=== PATIENT | female | born 1985 | race American Indian/Alaskan Native ===

== ENCOUNTER 2017-09-05 23:56 | Emergency (ER) | payer MEDICAID, OTHER ==
[2017-09-06 00:03] VITALS: BP 105/61
--- NOTE | 2017-09-06 00:10 | EDM.PDOC ---
ED HPI GENERAL MEDICAL PROBLEM - General Chief Complaint: Chest Pain Stated Complaint: INJURED RIBS [id number] Time Seen by Provider: 09/06/17 00:08 Source of Information: Reports: Patient History Limitations: Reports: No Limitations - History of Present Illness INITIAL COMMENTS - FREE TEXT/NARRATIVE: fell injuring right ribs yesterday, still hurts tonight. Right Thoracic Pain Score (Numeric/FACES): 8 - Related Data Allergies Allergy/AdvReac Type Severity Reaction Status Date / Time aspirin AdvReac Mild Stomach Verified 09/06/17 00:02 Ache Home Meds: Home Meds . [No Known Home Meds] 09/06/17 [History] Past Medical History - Past Health History Medical/Surgical History: Denies Medical/Surgical History Social & Family History - Family History Family Medical History: Noncontributory - Tobacco Use Smoking Status *Q: Current Every Day Smoker Years of Tobacco use: 2 Packs/Tins Daily: 0.2 Used Tobacco, but Quit: No Second Hand Smoke Exposure: No - Alcohol Use Days Per Week of Alcohol Use: 0 - Recreational Drug Use Recreational Drug Use: No ED ROS GENERAL - Review of Systems Review Of Systems: ROS reveals no pertinent complaints other than HPI. ED EXAM, GENERAL - Physical Exam Exam: See Below Exam Limited By: No Limitations General Appearance: Alert, WD/WN, Mild Distress, Other (pain) Ears: Hearing Grossly Normal Throat/Mouth: Normal Voice, No Airway Compromise Head: Atraumatic Neck: Non-Tender, Full Range of Motion Respiratory/Chest: No Respiratory Distress, Other (right lateral subcostal tender, no E/C). No: No Accessory Muscle Use, Decreased Breath Sounds Cardiovascular: Regular Rate, Rhythm GI/Abdominal: Soft, Non-Tender Neurological: Alert, Oriented, Normal Cognition, Normal Gait, No Motor/Sensory Deficits Psychiatric: Flat Affect Skin Exam: Warm, Dry, Normal Color Lymphatic: No Adenopathy Course - Vital Signs Last Recorded V/S: Last Vital Signs Temp 36.3 C 09/05/17 23:58 Pulse 79 09/05/17 23:58 Resp 18 09/05/17 23:58 BP 105/61 09/05/17 23:58 Pulse Ox 100 09/05/17 23:58 - Orders/Labs/Meds Orders: Active Orders 24 hr Category Date Time Status Ribs 2V w Chest Rt [CR] Urgent Exams 09/06/17 00:25 Taken Labs: Laboratory Tests 09/06/17 09/06/17 Range/Units 00:08 00:08 Urine HCG, Qual Negative Urine Opiates Screen Negative (NEGATIVE) Ur Oxycodone Screen Negative (NEGATIVE) Urine Methadone Screen Negative (NEGATIVE) Ur Barbiturates Screen Negative (NEGATIVE) U Tricyclic Antidepress Negative (NEGATIVE) Ur Phencyclidine Scrn Negative (NEGATIVE) Ur Amphetamine Screen Positive H (NEGATIVE) U Methamphetamines Scrn Positive H (NEGATIVE) Urine MDMA Screen Positive H (NEGATIVE) U Benzodiazepines Scrn Negative (NEGATIVE) Urine Cocaine Screen Negative (NEGATIVE) U Marijuana (THC) Screen Positive H (NEGATIVE) - Re-Assessments/Exams Free Text/Narrative Re-Assessment/Exam: 09/06/17 00:51 results discussed with pt & spouse. pt sleeping arousable. Departure - Departure Time of Disposition: 00:51 Disposition: Home, Self-Care 01 Condition: Good Clinical Impression: Contusion of rib on right side Qualifiers: Encounter type: initial encounter Qualified Code(s): S20.211A - Contusion of right front wall of thorax, initial encounter - Discharge Information Instructions: Rib Contusion Forms: ED Department Discharge Additional Instructions: 1) avoid further injuries 2) avoid bending lifting straining 3) recheck as needed rx given; flexeril 10mg bid prn x 12 - My Orders Last 24 Hours: My Active Orders 09/06/17 00:25 Ribs 2V w Chest Rt [CR] Urgent - Assessment/Plan Last 24 Hours: My Active Orders 09/06/17 00:25 Ribs 2V w Chest Rt [CR] Urgent
== END 2017-09-06 00:57 | disposition home or self-care (01) ==
LOC: DL.ED 23:56
DX: S20.211A Contusion of right front wall of thorax, initial encounter (principal); F17.210 Nicotine dependence, cigarettes, uncomplicated; W19.XXXA Unspecified fall, initial encounter; Z88.8 Allergy status to other drugs, medicaments and biological substances
CPT/HCPCS: 71101-RT; 80305; 81025; 99285

== ENCOUNTER 2020-12-28 03:52 | Inpatient (IN) | payer MEDICAID ==
[2020-12-28] MEDS: Lactated Ringers 1,000 ML IV SCH ×2 (04:30→07:40)
[2020-12-28] MEDS ORDERED: Citric Acid/Sodium Citrate Solution 30 ML Cup PO ONE (04:36)
[2020-12-28] MEDS ORDERED: Tranexamic Acid 1,000 MG in Sodium Chloride 0.9% 100 ML IV PRN ×2 (04:36→11:05)
[2020-12-28] MEDS ORDERED: Sodium Chloride 0.9% 10 ML Syringe FLUSH PRN (04:36)
[2020-12-28] MEDS ORDERED: ceFAZolin 2 GM in Premix Bag 1 BAG IV ONE (04:36)
[2020-12-28] MEDS ORDERED: Oxytocin/Normal Saline 30 UNIT/500 ML BAG IV SCH (04:45)
[2020-12-28] MEDS ORDERED: Citric Acid/Sodium Citrate Solution 30 ML Cup ONE (04:45)
[2020-12-28] MEDS ORDERED: Lactated Ringers 1,000 ML IV SCH ×2 (04:45→11:15)
[2020-12-28] MEDS ORDERED: Oxytocin/Normal Saline 60 UNIT/1,000 ML BAG ONE (04:57)
[2020-12-28] MEDS ORDERED: ePHEDrine 50 MG/ML SDV IV ONE (05:00)
[2020-12-28] MEDS ORDERED: Ondansetron 4 MG/2 ML SDV IV ONE (05:00)
[2020-12-28] MEDS ORDERED: Propofol 200 MG/20 ML SDV IV ONE (05:00)
[2020-12-28] MEDS ORDERED: Ketorolac 30 MG/ML SDV IVPUSH ONE (05:00)
[2020-12-28] MEDS ORDERED: Phenylephrine 1% 10 MG/ML SDV IV ONE (05:00)
--- NOTE | 2020-12-28 05:27 | US ---
PROCEDURE INFORMATION: Exam: US , Limited Exam date and time: 12/28/2020 4:42 AM Age: 35 years old Clinical indication: Lmp or gestational age (in weeks): Unknown; Antepartum complications; Patient HX: Dates and placenta location, bleeding, no care; Additional info: No pnc TECHNIQUE: Imaging protocol: Real-time ultrasound of the maternal uterus with image documentation. Exam focused on the clinical indication. COMPARISON: No relevant prior studies available. FINDINGS: Gestation: Intrauterine gestation. presentation: There is a gravid uterus containing a single live intrauterine currently in the cephalic presentation. heart rate: The cardiac rate was regular at 112 bpm. Placenta: The placenta is fundal. There is no previa. The placenta is a grade 2 Amniotic fluid: Amniotic fluid volume appears normal BIOMETRY: Gestational age (AUA): The sonographic gestational age is approximately 36 weeks 3 days. IMPRESSION: 1. Single live intrauterine with a sonographic gestational age of approximately 36 weeks 3 days. 2. The current estimated weight is 2715 g (6 lb 0 oz) 30%
[2020-12-28] MEDS ORDERED: Norepinephrine 4 MG/4 ML SDV ONE (06:10)
--- NOTE | 2020-12-28 07:08 | PCM.CONSN ---
- General Info Date of Service: 12/28/20 Admission Dx/Problem (Free Text): 35F w/ pmh Hep C, polysubstance abuse, a/w suspected abruptio placenta in setting of her 11th now s/p emergent hospitalist consulted for hypotension and bradycardia. The EBL pre-op was 500-1000cc. Intra-op EBL was another ~600cc. Her initial Hb was 10.0 and she appeared dry per OB provider. She admitted to meth use appx 2 days ago. After spinal anesthesia was administered the pt became extremely agitated requiring IVP propofol. Subsequently she developed hypotension down to 69/29. Pt then received ephedrine and phenylephrine w/ improvement in SBP to 80-90s. Pt was never intubated but was bagged briefly. In the PACU the pt once again became extremely agitated and briefly hypotensive and bradycardic to 40s. No EKG was done but per anesthesia it appeared sinus. This too resolved w/in 5 min. Pt received ~1900 intra-op fluids. Pt was seen in the PACU. For past 30 min her SBPs have been 100-110s. HR 50- 60s. She is sedated and does not respond to questions but is moving around in the bed. Extremities are well perfused w/ good cap refill. Abdomen appears benign. UOP has been essentially 0 since cath was placed. - Review of Systems General: Reports: Other (unable to obtain ROS due to mental status) - Patient Data Vitals - Most Recent: Last Vital Signs Temp Pulse Resp BP Pulse Ox 100 12/28/20 05:51 Weight - Most Recent: 175 lb I&O - Last 24 Hours: Intake & Output 12/27/20 12/27/20 12/28/20 14:59 22:59 06:59 Intake Total 50 Balance 50 Lab Results Last 24 Hours: Laboratory Results - last 24 hr 12/28/20 12/28/20 12/28/20 Range/Units 04:05 04:05 04:06 WBC 7.4 (5.0-10.0) 10^3/uL RBC 3.97 L (4.2-5.4) 10^6/uL Hgb 10.0 L (12.0-16.0) g/dL Hct 31.2 L (37.0-47.0) % MCV 78.6 L (80-100) fL MCH 25.2 L (27.0-34.0) pg MCHC 32.1 L (33.0-35.0) g/dL Plt Count 335 (150-450) 10^3/uL Urine Opiates Screen (NEGATIVE) Ur Oxycodone Screen (NEGATIVE) Urine Methadone Screen (NEGATIVE) Ur Barbiturates Screen (NEGATIVE) U Tricyclic Antidepress (NEGATIVE) Ur Phencyclidine Scrn (NEGATIVE) Ur Amphetamine Screen (NEGATIVE) U Methamphetamines Scrn (NEGATIVE) Urine MDMA Screen (NEGATIVE) U Benzodiazepines Scrn (NEGATIVE) Urine Cocaine Screen (NEGATIVE) U Marijuana (THC) Screen (NEGATIVE) SARS-CoV-2 RNA (ATUL) Negative (NEGATIVE) Blood Type A POSITIVE Gel Antibody Screen Negative 12/28/20 Range/Units 04:55 WBC (5.0-10.0) 10^3/uL RBC (4.2-5.4) 10^6/uL Hgb (12.0-16.0) g/dL Hct (37.0-47.0) % MCV (80-100) fL MCH (27.0-34.0) pg MCHC (33.0-35.0) g/dL Plt Count (150-450) 10^3/uL Urine Opiates Screen Negative (NEGATIVE) Ur Oxycodone Screen Negative (NEGATIVE) Urine Methadone Screen Negative (NEGATIVE) Ur Barbiturates Screen Negative (NEGATIVE) U Tricyclic Antidepress Negative (NEGATIVE) Ur Phencyclidine Scrn Negative (NEGATIVE) Ur Amphetamine Screen Positive H (NEGATIVE) U Methamphetamines Scrn Positive H (NEGATIVE) Urine MDMA Screen Negative (NEGATIVE) U Benzodiazepines Scrn Negative (NEGATIVE) Urine Cocaine Screen Negative (NEGATIVE) U Marijuana (THC) Screen Negative (NEGATIVE) SARS-CoV-2 RNA (ATUL) (NEGATIVE) Blood Type Gel Antibody Screen - Exam Quality Assessment: Supplemental Oxygen General: Lethargic HEENT: Pupils Reactive, Mucous Membr. Moist/Whiteside Lungs: Clear to Auscultation (anteriorly), Normal Respiratory Effort Cardiovascular: Regular Rate, Regular Rhythm, No Murmurs GI/Abdominal Exam: Normal Bowel Sounds, Soft, Non-Tender, No Distention (Female) Exam: Other (rendon in place) Extremities: Other (SCDs on, all ext warm and well perfused, good cap refill) Skin: Warm, Dry Psy/Mental Status: Other (sedated) Sepsis Event Note - Focused Exam Vital Signs: Vital Signs Pulse Ox 12/28/20 05:51 100 Consult PN Assessment/Plan Procedures: Procedures AIRWAY INHALATION TREATMENT (04/30/19) ASSAY OF MAGNESIUM (12/08/13) CHORIONIC GONADOTROPIN TEST (12/08/13) CHYLMD TRACH DNA AMP PROBE (01/24/16) COMPLETE CBC W/AUTO DIFF WBC (12/08/13) CULTURE AEROBIC IDENTIFY (12/08/13) DRUG TEST PRSMV DIR OPT OBS (04/06/18) EMERGENCY DEPT VISIT (04/30/19) EMERGENCY DEPT VISIT (04/30/19) EMERGENCY DEPT VISIT (04/06/18) EMERGENCY DEPT VISIT (04/06/18) EMERGENCY DEPT VISIT (09/05/17) EMERGENCY DEPT VISIT (01/24/16) EMERGENCY DEPT VISIT (12/08/13) HEMATOCRIT (04/06/18) HEMOGLOBIN (04/06/18) HEPATITIS C AB TEST (12/16/18) HIV-1 AG W/HIV-1 & -2 AB AG IA (12/16/18) METABOLIC PANEL TOTAL CA (12/08/13) MICROBE SUSCEPTIBLE XANDER (12/08/13) N.GONORRHOEAE DNA AMP PROB (01/24/16) OB US LIMITED FETUS(S) (12/08/13) ROUTINE VENIPUNCTURE (04/06/18) THER/PROPH/DIAG INJ SC/IM (01/24/16) URINALYSIS AUTO W/SCOPE (04/06/18) URINE BACTERIA CULTURE (12/08/13) URINE TEST (04/30/19) X-RAY EXAM CHEST 2 VIEWS (04/30/19) X-RAY EXAM UNILAT RIBS/CHEST (09/05/17) Problem List Initiated/Reviewed/Updated: No My Orders Last 24 Hours: #hypotension / bradycardia - likely in setting of spinal anesthesia - her trajectory is improving and currently hemodynamically stable - she is also currently fairly sedated - would obtain a 12 lead EKG at some point when feasible - c/w IVF infusions - repeat CBC and transfuse if needed - keep T/S on file - would expect hemodynamics to improve further w/in 2-6h as spinal wears off - I recommend against intubation at this moment as risks outweigh the benefits #oliguria - in setting of above - likely appropriate physiologic response to hypotension - keep rendon to monitor UOP - c/w IVF resuscitation - send chemistry w/ next draw - MUST AVOID any contrast administration in this setting and weigh risks of potentially nephrotoxic agents #agitation - would use intermediate acting benzos like ativan prn - BP should not go down significantly #POD0 s/p labor and delivery in setting of abruptio placenta - defer to OB #acute blood loss anemia - f/up CBC - transfuse as needed #polysubstance abuse - watch for w/drawal - CM/SW eval PPX - per OB Full code
[2020-12-28 09:40] LABS: ANION GAP 14.7 mEq/L (7-13); CHLORIDE,CL 103 mmol/L (98-107); SODIUM,NA 138 mmol/L (136-145)
--- NOTE | 2020-12-28 10:47 | OR ---
DATE: 12/28/2020 PREOPERATIVE DIAGNOSES: 1. Vaginal bleeding with labor. 2. Estimated gestational age 37 weeks 6 days by last menstrual period, 36 weeks 3 days by ultrasound performed tonight. 3. 11, para 8-1-1-10. 4. History of vaginal delivery of twins. 5. Methamphetamine abuse with last use 2 days ago. 6. Hepatitis C virus carrier. 7. Smoker. 8. No care. 9. Clinical dehydration. POSTOPERATIVE DIAGNOSES: 1. Vaginal bleeding with labor. 2. Estimated gestational age 37 weeks 6 days by last menstrual period, 36 weeks 3 days by ultrasound performed tonight. 3. 11, now para 8-2-1-11. 4. History of vaginal delivery of twins. 5. Methamphetamine abuse with last use 2 days ago. 6. Hepatitis C virus carrier. 7. Smoker. 8. No care. 9. Placental abruption confirmed. 10.Anemia of . 11.Clinical dehydration. BRIEF HISTORY: A 35-year-old female with the above-listed diagnoses, brought in by [facility] ambulance after experiencing onset of contractions early this morning accompanied by significant vaginal bleeding. Ambulance service reports that there was a lot of blood present in the toilet and in the patient's bathroom and bedroom and quite a bit on their ambulance cart. Estimated blood loss quantity was not actually provided. The patient says she has had all prior vaginal deliveries and that her labors are usually quite fast. She denies any bleeding previous to this morning. Last use of methamphetamine was approximately 2 days ago. Denies any specific abdominal pain. She has had no preeclampsia symptoms. No chest pain or shortness of breath. No care. Denies other acute concerns pertinent to today's visit. Upon arrival at Labor and Delivery, baby's heart tones were in the 80s and 90s with good variability. Bleeding was moderate and nurses were getting her assessed quickly. We were able to get a rapid bedside ultrasound showing the baby to be 36 weeks 3 days gestation based on measurements and the placenta to be anterior and high away from the uterine incision location. No anatomy or additional screening was performed due to time constraints. Myers catheter was placed in the delivery room and only 50 mL of concentrated urine resulted. PROCEDURE PERFORMED: Primary low transverse section without complications. RELAY ADJUSTER: Cris Reyes MD. FINDINGS: Normal maternal anatomy. Large placental abruption with a clot approximately 300 mL in size and viable male with scores of 5 and 7, weight 2500 g, 5 pounds 8 ounces. Initial exam consistent with a gestational age of 36 to 37 weeks. ANESTHESIA: Spinal. The patient was quite anxious about not feeling her legs and given a dose of propofol for additional sedation. CONSENT: Discussed with the patient. INDICATIONS: Risks, benefits, and alternatives to primary low transverse section including but not limited to, injury to large blood vessels, nerves, veins, internal organs, and adjacent structures to the uterus, fallopian tubes, ovaries, intestines, bladder, and any other potential adjacent structures, potential injury to the baby, potential for complications for mother and/or baby that would require transfer to a higher level of care for definitive management and remote risk of . Also discussed risk of bleeding to the point of requiring a blood transfusion and its inherent risks. Her questions were answered and appropriate consent forms were signed and can be found in the chart. DETAILS: The patient brought to the operating room and spinal anesthesia was obtained. The patient then laid in dorsal supine position with leftward tilt. Myers indwelling catheter had previously been placed before coming to the OR. Abdomen was cleaned with Betadine, and sterile drapes applied in usual fashion. A Pfannenstiel skin incision was made with scalpel and carried down to the underlying fascia with scalpel and finger dissection. At this time, Anesthesia had reported the patient was thrashing and quite agitated and felt that he would have to put her under general anesthesia to control that, so we were moving a little bit more quickly, even though he ultimately ended up only giving propofol. Fascia was incised in the midline with scalpel and the fascia cleared with retractor and finger dissection. Fascia opened with blunt traction and superior fascial edge was elevated and rectus muscles dissected off bluntly, inferior fascial edge, treated in a similar fashion. The peritoneal layer was opened with blunt finger dissection and hysterotomy site evaluated, was rather thin and bulging, but no obvious signs of bleeding were seen. Uterine incision was made with scalpel and immediately a dark red clot presented through the hysterotomy site. The opening was expanded bilaterally using Galeana method and amniotic fluid sac then seen and ruptured with Allis clamps and clear fluid returned. 's head was brought up to the hysterotomy site and delivered out with concomitant fundal pressure. Baby was delivered, noted to be floppy, and initially unresponsive. Baby was being dried, stimulated, and mouth and nose were being bulb suctioned. As soon as the 3-vessel umbilical cord was doubly clamped and cut, Dr. Reyes took the baby to the warmer for further evaluation and resuscitation. Cord blood sample was obtained and placenta delivered by simple cord traction and uterine massage quite easily. Very large dark blood clot noted, estimated to be at least 300 mL in size. Uterus was cleared of all clots and debris with dry lap sponge x2. Hysterotomy site closed with a running lock suture of 0 Vicryl in the usual fashion. Second imbricating layer was also performed and excellent hemostasis obtained. Uterus exteriorized and fallopian tubes and ovaries normal in appearance, as well as posterior aspect of the uterus. This was placed back in the abdominal cavity and Jordi retractor removed. Paracolic gutters were cleared of all clots and debris, and hemostasis of the hysterotomy site verified. Peritoneal layer was brought back together with a stitch of 0 Vicryl in a running fashion. Fascial layer was then irrigated, cleared of all clots and debris, and fascia closed with a running stitch of 0 looped PDS. Subcutaneous tissue was then irrigated and any bleeders controlled with cautery. Skin was then closed with gary. The patient tolerated the procedure well and will go to the PACU for recovery. FLUIDS: Crystalloids 1900 mL. ESTIMATED BLOOD LOSS: 300 mL at the surgical field, 300 mL in blood clot with the abruption, and anticipated 500 to 1000 mL preoperative report combined. SPECIMENS: Cord sample taken for urine drug evaluation. COMPLICATIONS: None. CONDITION: The patient is stable, hypotensive, and has received some ephedrine in the operating room, but stable. [facility] /[id number] DINO
[2020-12-28] MEDS ORDERED: Acetaminophen/oxyCODONE 325-5 MG Tab PO PRN (11:05)
[2020-12-28] MEDS ORDERED: diphenhydrAMINE 50 MG/ML SDV IVPUSH PRN (11:05)
[2020-12-28] MEDS ORDERED: ePHEDrine 50 MG/ML SDV IVPUSH PRN (11:05)
[2020-12-28] MEDS ORDERED: Naloxone 2 MG/2 ML Syringe IVPUSH PRN (11:05)
[2020-12-28] MEDS ORDERED: Acetaminophen 325 MG Tab PO PRN (11:05)
[2020-12-28] MEDS ORDERED: Carboprost Tromethamine 250 MCG/1 ML Amp IM PRN (11:05)
[2020-12-28] MEDS ORDERED: Ondansetron 4 MG/2 ML SDV IVPUSH PRN (11:05)
[2020-12-28] MEDS ORDERED: Misoprostol 400 MCG (4 X 100 MCG TAB) RECTAL PRN (11:05)
[2020-12-28] MEDS ORDERED: Methylergonovine 0.2 MG/1 ML Amp IM PRN (11:05)
--- NOTE | 2020-12-28 11:47 | HP ---
CHIEF COMPLAINT: Labor with bleeding. HISTORY OF PRESENT ILLNESS: A 35-year-old female, brought in by [facility] ambulance reporting onset of regular contractions, increasing in force and frequency, accompanied by heavy vaginal bleeding. Ambulance crew reported to the nurses that the toilet was filled with blood and there was a large amount of blood in the bathroom and on their ambulance cart, but no actual estimated blood loss value was given. The patient reports never experiencing bleeding like this with prior deliveries. Reports all deliveries have been vaginal. She has not had any care this . Admits to methamphetamine use 2 days prior to admission. Denies any symptoms of preeclampsia. Denies problems with prior deliveries even in the period. Reports last menstrual period as 04/08/2020; and her due date would be 01/12/2021, making her 37 and 6/7 weeks gestation at this time. She is a 11, para 8-1-1-10. FAMILY HISTORY: Reportedly negative. PAST MEDICAL HISTORY: Chickenpox as a child. History of intravenous drug use, currently using methamphetamine via smoking method. Smokes regular cigarettes, and has a history of chronic hepatitis C. PAST SURGICAL HISTORY: Cholecystectomy. ALLERGIES: Aspirin causes stomach pain. MEDICATIONS: vitamins 1 daily. SOCIAL HISTORY: The patient is single. Reports having custody of her younger children. Oldest child is 19. Light smoker. Other information can be obtained postoperatively as there is limited time for details. OBSTETRICAL HISTORY: 1. 11/07/2001, female infant, 7 pounds 9 ounces at term, 2-1/2 hours of labor. 2. 11/29/2002, female infant, 5 pounds 13 ounces, reportedly term, vaginal delivery. 3. 02/29/2004, female, 6 pounds 12 ounces, reportedly term, vaginal delivery. 4. 09/22/2007, male, 7 pounds 6 ounces, reportedly term, vaginal delivery. 5. 02/27/2008, spontaneous at 8 to 10 weeks gestation. 6. 01/05/2009, female , weight is 6 pounds 7 ounces. 7. 06/07/2013,, male 8 pounds 1 ounce, 40 weeks gestation, delivered vaginally by Dr. Lim. 8. 01/05/2014, 37 weeks 1 day gestation. Weight 3010 g, 6 pounds 10 ounces, score of 9 and 9. Vaginal delivery by Dr. Grey. 9. Twin gestation 30 to 34 weeks gestation, complicated by methamphetamine and MDMA use. Twin A, hawa breech, 975 g, score of 8 and 8, female. Twin B, double footling breech, male, 2010 g, score of 1, 4, and 7. REVIEW OF SYSTEMS: As per the history of present illness. No recent fever, chills, chest pain, shortness of breath. Denies any leakage of fluid. No vaginal bleeding previously in the . No care. Denies other use of drugs or alcohol other than that already listed. PHYSICAL EXAMINATION: Vital Signs: Temperature is 97.6, blood pressure 119/87 and 143/91, pulse of 78, O2 saturations 100% on room air. HEENT: Grossly unremarkable. The patient does have an oxygen mask on at this time and I did not remove that for a thorough oral exam. Neck: Supple without adenopathy. Heart: Regular without murmur. Lungs: Clear to auscultation bilaterally. Abdomen: Gravid, soft, firm with contractions. The baby palpates vertex. Genitourinary: Speculum exam, I am unable to see the cervical opening to assess for placenta previa. Gentle digital exam prior to ultrasound being on site reveals the external portion of the cervix to feel no more than potential 4 cm dilated. There is possible tissue present at the cervical os that could represent placenta or just normal cervical tissue. After ultrasound was performed and verified that she did not have a placenta previa, re-exam of the cervix was 50% effaced, 3.5 cm dilated, bulging bag of water intact with vertex palpated. Extremities: No edema, erythema, or tenderness. Skin: Warm, dry, appropriate for race. No open sores. Psychiatric: The patient is cooperative with answering questions as best she can between her painful contractions. No tics, tremors, or hallucinations at this time. The patient does not appear to be acutely intoxicated with drugs or alcohol. ASSESSMENT: 1. Estimated 36 weeks 3 days gestation based on ultrasound today, 37 weeks 6 days by last menstrual period. 2. Vaginal bleeding, suspect placental abruption because of her methamphetamine use. 3. Methamphetamine abuse. 4. 11, para 8-1-1-10. 5. Light smoker. 6. No care. 7. History of twins, undiagnosed prior . 8. Hepatitis C. 9. Anemia of . Admission hemoglobin of 10. PLAN: At this time, heart rate is in the 80s and 90s, however, showing good variability. She is remote from delivery and having significant vaginal bleeding. We will proceed with primary low transverse section. Operating room crew and respiratory therapist assistant have been called and should be arriving shortly so that we can proceed to the operating room. The patient was appropriately consented and those forms will be found in the chart. Details will be in the operative report. [facility] /[id number] DINO
[2020-12-28] MEDS: Ketorolac 30 MG/ML SDV IVPUSH SCH ×2 (12:59→18:05)
[2020-12-28] MEDS: Simethicone 80 MG Tab.Chew PO SCH ×3 (13:00→20:37)
[2020-12-28] MEDS: Docusate Sodium 100 MG Cap PO PRN (20:37)
[2020-12-28] MEDS: Ferrous Sulfate 325 MG Tab PO SCH (20:37)
[2020-12-28] MEDS: Calcium Carbonate/Vitamin D3 1250 MG-200 Unit Tab PO SCH (21:39)
[2020-12-28] MEDS: Acetaminophen/oxyCODONE 325-5 MG Tab PO PRN (21:40)
[2020-12-29] MEDS: Ketorolac 30 MG/ML SDV IVPUSH SCH (00:50)
[2020-12-29] MEDS: Acetaminophen/oxyCODONE 325-5 MG Tab PO PRN ×4 (05:48→21:17)
[2020-12-29] MEDS ORDERED: Measles, Mumps & Rubella Vaccine 0.5 ML SDV SUBCUT ONE (09:07)
[2020-12-29] MEDS: Ferrous Sulfate 325 MG Tab PO SCH ×2 (09:39→21:17)
[2020-12-29] MEDS: Docusate Sodium 100 MG Cap PO PRN ×2 (09:39→21:17)
[2020-12-29] MEDS: Simethicone 80 MG Tab.Chew PO SCH ×4 (09:39→21:17)
[2020-12-29] MEDS: Calcium Carbonate/Vitamin D3 1250 MG-200 Unit Tab PO SCH ×2 (09:40→21:17)
[2020-12-29] MEDS: Ibuprofen 800 MG Tab PO PRN ×2 (09:40→19:41)
[2020-12-29] MEDS: Prenatal Multivitamin with Calcium/Folic Acid/Iron Tab PO SCH (09:40)
--- NOTE | 2020-12-29 09:55 | PCM.CONSN ---
- General Info Date of Service: 12/29/20 Admission Dx/Problem (Free Text): Feels 'better'. No agitation. No pain. Stable BP and UOP. - Patient Data Vitals - Most Recent: Last Vital Signs Temp 98.2 F 12/29/20 08:00 Pulse 83 12/29/20 08:00 Resp 16 12/29/20 08:00 BP 134/86 12/29/20 08:00 Pulse Ox 98 12/29/20 08:00 Weight - Most Recent: 175 lb I&O - Last 24 Hours: Intake & Output 12/28/20 12/29/20 12/29/20 22:59 06:59 14:59 Intake Total 350 Output Total 1550 900 Balance -1200 -900 Lab Results Last 24 Hours: Laboratory Results - last 24 hr 12/28/20 12/28/20 12/28/20 Range/Units 04:05 09:05 09:05 WBC (5.0-10.0) 10^3/uL RBC (4.2-5.4) 10^6/uL Hgb (12.0-16.0) g/dL Hct (37.0-47.0) % MCV (80-100) fL MCH (27.0-34.0) pg MCHC (33.0-35.0) g/dL Plt Count (150-450) 10^3/uL HIV-1 Antibody Non-reactive (NONREACTIVE) HIV-2 Antibody Non-reactive (NONREACTIVE) HIV P24 Antigen Non-reactive (NONREACTIVE) Rubella Immune Status Immune Rubella IgG Antibody Positive IU/mL Blood Type A POSITIVE Gel Antibody Screen Negative Crossmatch See Detail 12/28/20 12/29/20 Range/Units 16:30 05:45 WBC 6.6 (5.0-10.0) 10^3/uL RBC 3.13 L (4.2-5.4) 10^6/uL Hgb 6.5 L* 8.0 L D (12.0-16.0) g/dL Hct 25.1 L (37.0-47.0) % MCV 80.2 (80-100) fL MCH 25.6 L (27.0-34.0) pg MCHC 31.9 L (33.0-35.0) g/dL Plt Count 241 (150-450) 10^3/uL HIV-1 Antibody (NONREACTIVE) HIV-2 Antibody (NONREACTIVE) HIV P24 Antigen (NONREACTIVE) Rubella Immune Status Rubella IgG Antibody IU/mL Blood Type Gel Antibody Screen Crossmatch Zoran Results Last 24 Hours: Microbiology 12/28/20 08:25 Urine Culture - Preliminary Urine, Catheterized NO GROWTH AFTER 1 DAY - Exam Quality Assessment: No: Supplemental Oxygen General: Alert, Oriented, Cooperative Lungs: Clear to Auscultation, Normal Respiratory Effort Cardiovascular: Regular Rate, Regular Rhythm, No Murmurs GI/Abdominal Exam: Normal Bowel Sounds, Soft, Non-Tender, No Distention (Female) Exam: Other (rendon in place) Extremities: No Pedal Edema Skin: Warm, Dry Neurological: No New Focal Deficit Psy/Mental Status: Alert, Normal Affect, Normal Mood Sepsis Event Note - Evaluation Sepsis Screening Result: No Definite Risk - Focused Exam Vital Signs: Vital Signs Temp Pulse Resp BP Pulse Ox 12/29/20 08:00 98.2 F 83 16 134/86 98 12/29/20 04:00 98.5 F 54 L 16 126/81 12/29/20 00:00 97.5 F 72 16 132/77 Consult PN Assessment/Plan POD#: 1 Procedures: Procedures AIRWAY INHALATION TREATMENT (04/30/19) ASSAY OF MAGNESIUM (12/08/13) CHORIONIC GONADOTROPIN TEST (12/08/13) CHYLMD TRACH DNA AMP PROBE (01/24/16) COMPLETE CBC W/AUTO DIFF WBC (12/08/13) CULTURE AEROBIC IDENTIFY (12/08/13) DRUG TEST PRSMV DIR OPT OBS (04/06/18) EMERGENCY DEPT VISIT (04/30/19) EMERGENCY DEPT VISIT (04/30/19) EMERGENCY DEPT VISIT (04/06/18) EMERGENCY DEPT VISIT (04/06/18) EMERGENCY DEPT VISIT (09/05/17) EMERGENCY DEPT VISIT (01/24/16) EMERGENCY DEPT VISIT (12/08/13) HEMATOCRIT (04/06/18) HEMOGLOBIN (04/06/18) HEPATITIS C AB TEST (12/16/18) HIV-1 AG W/HIV-1 & -2 AB AG IA (12/16/18) METABOLIC PANEL TOTAL CA (12/08/13) MICROBE SUSCEPTIBLE ZORAN (02/19/14) N.GONORRHOEAE DNA AMP PROB (01/24/16) OB US LIMITED FETUS(S) (12/08/13) ROUTINE VENIPUNCTURE (04/06/18) THER/PROPH/DIAG INJ SC/IM (01/24/16) URINALYSIS AUTO W/SCOPE (04/06/18) URINE BACTERIA CULTURE (12/08/13) URINE TEST (04/30/19) X-RAY EXAM CHEST 2 VIEWS (04/30/19) X-RAY EXAM UNILAT RIBS/CHEST (09/05/17) Problem List Initiated/Reviewed/Updated: No Plan: #hypotension / bradycardia 2/2 spinal anesthesia and propofol use - resolved #oliguria - in setting of above - likely appropriate physiologic response to hypotension - now resolved - rec d/c rendon cath #agitation - would use intermediate acting benzos like ativan prn - BP should not go down significantly - resolved #POD1 s/p labor and delivery in setting of abruptio placenta - defer to OB #acute blood loss anemia - s/p 1U prbc - would not transfuse further as she is young and w/ lots of physiologic reserve - defer to OB #polysubstance abuse - watch for w/drawal - CM/SW eval PPX - per OB Full code Will sign off. Recall prn.
[2020-12-29 11:47] LABS: C.TRACHOMATIS BY TMA Positive (Negative); N.GONORRHOEAE BY TMA Positive (Negative)
[2020-12-29] MEDS ORDERED: cefTRIAXone 500 MG Vial IM ONE (12:23)
[2020-12-29] MEDS ORDERED: Azithromycin 250 MG Tab PO ONE (12:25)
--- NOTE | 2020-12-29 12:56 | PN ---
DATE: 12/29/2020 SUBJECTIVE: This patient is a 35-year-old 11, para 8-1-1-9 female, who reported to Labor and Delivery yesterday with bleeding and she had a primary section for abruptio placenta. She tolerated the procedure quite well. She has done well throughout the night. She has had good urinary output. She denies any nausea, vomiting, or diarrhea. No fever or chills. She has been up and about after her Myers catheter has been removed and has had good urinary output. Her lochia is minimal to moderate. Her incision is uncomfortable, but she is doing quite well with it. There is no drainage noted. No fever, chills. She did have a positive chlamydia and gonorrhea that came back today. She states that her partner was treated on Friday with a "shot and some pills." Her hemoglobin today was 8. She denies any lightheadedness or dizziness. OBJECTIVE: General: Well-developed, well-nourished female, in no acute distress. Vital Signs: Stable. Afebrile. HEENT: Unremarkable. NECK: Supple without adenopathy. No thyromegaly. Lungs: Clear to auscultation. No wheezing, rhonchi, or rales noted. Cardiovascular: Regular rate and rhythm without murmurs. Abdomen: Soft, slightly tender over the incision site. Bowel sounds good. No rigidity, rebound tenderness, peritoneal signs noted. Incision is doing well with gary noted. Extremities: No edema, erythema, or tenderness noted. ASSESSMENT: 1. Postop day #1 status post primary low transverse section of a viable male . 2. Positive chlamydia and gonorrhea. 3. Anemia secondary to blood loss. PLAN: 1. Azithromycin p.o. 1000 mg now. 2. Ceftriaxone 500 mg IM now. 3. The patient is taking Percocet and ibuprofen as needed for pain. 4. The patient is walking and ambulating. 5. Discharge planning for the next couple of days. 6. All questions answered. MOD /[id number]
[2020-12-30] MEDS: Ibuprofen 800 MG Tab PO PRN ×3 (04:17→22:27)
[2020-12-30] MEDS: Acetaminophen/oxyCODONE 325-5 MG Tab PO PRN ×4 (04:18→22:27)
--- NOTE | 2020-12-30 09:06 | PCM.PNPP ---
- General Info Date of Service: 12/30/20 (POD # 2 S/P Primary section) Functional Status: Reports: Pain Controlled, Tolerating Diet, Ambulating, Urinating - Review of Systems General: Reports: No Symptoms HEENT: Reports: No Symptoms Pulmonary: Reports: No Symptoms Cardiovascular: Reports: No Symptoms Gastrointestinal: Reports: No Symptoms Genitourinary: Reports: No Symptoms Musculoskeletal: Reports: No Symptoms Skin: Reports: No Symptoms Neurological: Reports: No Symptoms Psychiatric: Reports: No Symptoms - General Info Date of Service: 12/30/20 (POD # 2 S/P Primary section) - Patient Data Vital Signs - Most Recent: Last Vital Signs Temp 98.7 F 12/30/20 04:00 Pulse 60 12/30/20 04:00 Resp 18 12/30/20 04:00 BP 147/85 H 12/30/20 04:00 Pulse Ox 100 12/30/20 04:00 Weight - Most Recent: 175 lb Lab Results - Last 24 Hours: Laboratory Results - last 24 hr 12/28/20 12/28/20 Range/Units 08:25 09:05 RPR Non-reac (Non-Reac) Chlamydia/GC Source Urine C.trachomatis RNA (TMA) Positive H (Negative) N.gonorrhoeae RNA (TMA) Positive H (Negative) Micro Results - Last 24 Hours: Microbiology 12/28/20 08:25 Urine Culture - Preliminary Urine, Catheterized NO GROWTH AFTER 1 DAY Med Orders - Current: Current Medications Acetaminophen (Acetaminophen 325 Mg Tab) 650 mg PO Q6H PRN PRN Reason: Mild Pain (1-3) or Fever Calcium Carbonate (Calcium Carbonate/Vitamin D3 1250 Mg-200 Unit Tab) 2 tab PO BID [facility] Last Admin: 12/29/20 21:17 Dose: 2 tab Documented by: Carboprost Tromethamine (Carboprost Tromethamine 250 Mcg/1 Ml Amp) 250 mcg IM ONETIME PRN PRN Reason: Bleeding Diphenhydramine HCl (Diphenhydramine 50 Mg/Ml Sdv) 25 mg IVPUSH Q6H PRN PRN Reason: Itching or Nausea Docusate Sodium (Docusate Sodium 100 Mg Cap) 100 mg PO Q12H PRN PRN Reason: Constipation Last Admin: 12/29/20 21:17 Dose: 100 mg Documented by: Ephedrine Sulfate (Ephedrine 50 Mg/Ml Sdv) 5 mg IVPUSH SEECOMMENT PRN PRN Reason: Other Ferrous Sulfate (Ferrous Sulfate 325 Mg Tab) 325 mg PO BID [facility] Last Admin: 12/29/20 21:17 Dose: 325 mg Documented by: Tranexamic Acid 1,000 mg/ (Sodium Chloride) 110 mls @ 660 mls/hr IV ONETIME PRN PRN Reason: Bleeding Oxytocin/Sodium Chloride (Pitocin In Ns 30 Unit/500 Ml) 30 unit in 500 mls @ 2 mls/hr IV TITRATE [facility]; Protocol Last Titration: 12/28/20 09:55 Dose: 0 munits/min, 0 mls/hr Documented by: Lactated Ringer's (Ringers, Lactated) 1,000 mls @ 125 mls/hr IV ASDIRECTED [facility] Last Admin: 12/28/20 16:25 Dose: 125 mls/hr Documented by: Tranexamic Acid 1,000 mg/ (Sodium Chloride) 110 mls @ 660 mls/hr IV ONETIME PRN PRN Reason: Bleeding Ibuprofen (Ibuprofen 800 Mg Tab) 800 mg PO Q8H PRN PRN Reason: Cramping Last Admin: 12/30/20 04:17 Dose: 800 mg Documented by: Methylergonovine Maleate (Methylergonovine 0.2 Mg/1 Ml Amp) 0.2 mg IM ONETIME PRN PRN Reason: Excessive Vaginal Bleeding Misoprostol (Misoprostol 400 Mcg (4 X 100 Mcg Tab)) 800 mcg RECTAL ASDIRECTED PRN PRN Reason: Excessive bleeding Naloxone HCl (Naloxone 2 Mg/2 Ml Syringe) 0.1 mg IVPUSH SEECOMMENT PRN PRN Reason: Respiratory Depression Ondansetron HCl (Ondansetron 4 Mg/2 Ml Sdv) 4 mg IVPUSH Q4H PRN PRN Reason: Nausea/Vomiting Oxycodone/Acetaminophen (Acetaminophen/Oxycodone 325-5 Mg Tab) 1 tab PO Q4H PRN PRN Reason: Pain (moderate 4-6) Oxycodone/Acetaminophen (Acetaminophen/Oxycodone 325-5 Mg Tab) 2 tab PO Q4H PRN PRN Reason: Pain (moderate 4-6) Last Admin: 12/30/20 04:18 Dose: 2 tab Documented by: Prenat Multivit/Technical Translator/Iron/Folic Ac ( Multivitamin With Calcium/Folic Acid/Iron Tab) 1 each PO DAILY [facility] Last Admin: 12/29/20 09:40 Dose: 1 each Documented by: Simethicone (Simethicone 80 Mg Tab.Chew) 160 mg PO QID [facility] Last Admin: 12/29/20 21:17 Dose: 160 mg Documented by: Sodium Chloride (Sodium Chloride 0.9% 10 Ml Syringe) 10 ml FLUSH ASDIRECTED PRN PRN Reason: Keep Vein Open Discontinued Medications Azithromycin (Azithromycin 250 Mg Tab) 1,000 mg PO ONETIME ONE Stop: 12/29/20 12:26 Last Admin: 12/29/20 13:25 Dose: 1,000 mg Documented by: Ceftriaxone Sodium (Ceftriaxone 500 Mg Vial) 500 mg IM ONETIME ONE Stop: 12/29/20 12:24 Last Admin: 12/29/20 13:26 Dose: 500 mg Documented by: Citric Acid/Sodium Citrate (Citric Acid/Sodium Citrate Solution 30 Ml Cup) 30 ml PO ONETIME ONE Stop: 12/28/20 04:37 Last Admin: 12/28/20 04:50 Dose: 30 ml Documented by: Citric Acid/Sodium Citrate (Citric Acid/Sodium Citrate Solution 30 Ml Cup) Confirm Administered Dose 30 ml .ROUTE .STK-MED ONE Stop: 12/28/20 04:46 Last Admin: 12/28/20 07:36 Dose: Not Given Documented by: Lactated Ringer's (Ringers, Lactated) 1,000 mls @ 125 mls/hr IV ASDIRECTED [facility] Last Admin: 12/28/20 07:40 Dose: 125 mls/hr Documented by: Lactated Ringer's (Ringers, Lactated) 1,000 mls @ 500 mls/hr IV .BOLUS [facility] Last Admin: 12/28/20 04:04 Dose: 500 mls/hr Documented by: Cefazolin Sodium/Dextrose 2 gm (/ Premix) 50 mls @ 100 mls/hr IV ONETIME ONE Stop: 12/28/20 05:05 Last Admin: 12/28/20 05:55 Dose: 100 mls/hr Documented by: Cefazolin Sodium/Dextrose (Ancef 2 Gm/50 Ml) Confirm Administered Dose 50 mls @ as directed .ROUTE .STK-MED ONE Stop: 12/28/20 04:57 Oxytocin/Sodium Chloride (Pitocin In Ns 30 Unit/500 Ml) Confirm Administered Dose 60 unit in 1,000 mls @ as directed .ROUTE .STK-MED ONE Stop: 12/28/20 04:58 Ketorolac Tromethamine (Ketorolac 30 Mg/Ml Sdv) 15 mg IVPUSH Q6H [facility] Stop: 12/29/20 01:01 Last Admin: 12/29/20 00:50 Dose: 15 mg Documented by: Norepinephrine Bitartrate (Norepinephrine 4 Mg/4 Ml Sdv) Confirm Administered Dose 4 mg .ROUTE .STK-MED ONE Stop: 12/28/20 06:11 Last Admin: 12/28/20 08:54 Dose: Not Given Documented by: - Infant Interaction Infant Disposition, : to Nursery Infant Interaction: Not Interacting Infant Feeding: Bottle Fed Infant Support Person: Other (see below) - Recovery Exam Fundal Tone: Firm Fundal Level: At Umbilicus Fundal Placement: Midline Lochia Amount: Small Lochia Color: Rubra/Red Perineum Description: Intact, Minimal Bruising/Swelling Episiotomy/Laceration: None Bladder Status: Voiding Urinary Elimination: Voided - Exam General: Alert, Oriented, Cooperative, No Acute Distress HEENT: Pupils Equal, Pupils Reactive, EOMI, Mucous Membr. Moist/[place] Neck: Supple Lungs: Clear to Auscultation, Normal Respiratory Effort Cardiovascular: Regular Rate, Regular Rhythm, No Murmurs GI/Abdominal Exam: Normal Bowel Sounds, Soft, Non-Tender, No Organomegaly, No Distention Extremities: Normal Inspection, Normal Range of Motion, Non-Tender, No Pedal Edema, Normal Capillary Refill Skin: Warm, Dry, Intact Wound/Incisions: Healing Well, No Drainage Neurological: No New Focal Deficit, Normal Gait, Normal Speech, Normal Tone, Strength Equal Bilateral Psy/Mental Status: Alert, Normal Affect, Normal Mood - Problem List Review Problem List Initiated/Reviewed/Updated: Yes - Assessment Assessment:: POD # 2 S/P Primary low transverse section No care- Grand multiparity History of Preeclampsia without severe features Acute anemia secondary to blood loss Chlamydia and Gonorrhea treated. depression score 12. - Plan Plan:: Discharge planning for tomorrow. All questions answered. Patient has no thoughts of hurting herself, the baby or any one else.
[2020-12-30] MEDS: Calcium Carbonate/Vitamin D3 1250 MG-200 Unit Tab PO SCH ×2 (09:56→22:27)
[2020-12-30] MEDS: Simethicone 80 MG Tab.Chew PO SCH ×4 (09:56→21:38)
[2020-12-30] MEDS: Docusate Sodium 100 MG Cap PO PRN ×2 (09:56→21:38)
[2020-12-30] MEDS: Ferrous Sulfate 325 MG Tab PO SCH ×2 (09:56→21:38)
[2020-12-30] MEDS: Prenatal Multivitamin with Calcium/Folic Acid/Iron Tab PO SCH (09:56)
[2020-12-31] MEDS: Docusate Sodium 100 MG Cap PO PRN (08:15)
[2020-12-31] MEDS: Ibuprofen 800 MG Tab PO PRN (08:15)
[2020-12-31] MEDS: Simethicone 80 MG Tab.Chew PO SCH ×2 (08:15→12:58)
[2020-12-31] MEDS: Calcium Carbonate/Vitamin D3 1250 MG-200 Unit Tab PO SCH (08:15)
[2020-12-31] MEDS: Ferrous Sulfate 325 MG Tab PO SCH (08:15)
[2020-12-31] MEDS: Prenatal Multivitamin with Calcium/Folic Acid/Iron Tab PO SCH (08:15)
[2020-12-31] MEDS: Acetaminophen/oxyCODONE 325-5 MG Tab PO PRN ×2 (08:16→12:58)
[2020-12-31] MEDS ORDERED: Magnesium Sulfate/Water 20 GM/500 ML BAG ONE (09:07)
[2020-12-31] MEDS ORDERED: Magnesium Sulfate/Water 4 GM/100 ML BAG ONE (09:07)
--- NOTE | 2020-12-31 10:19 | PCM.PNPP ---
- General Info Date of Service: 12/31/20 (POD/PPD # 3 S/P Primary LTC/S) Functional Status: Reports: Pain Controlled, Tolerating Diet, Ambulating, Urinating - Review of Systems General: Reports: No Symptoms HEENT: Reports: No Symptoms Pulmonary: Reports: No Symptoms Cardiovascular: Reports: No Symptoms Gastrointestinal: Reports: No Symptoms Genitourinary: Reports: No Symptoms Musculoskeletal: Reports: No Symptoms Skin: Reports: No Symptoms Neurological: Reports: No Symptoms Psychiatric: Reports: No Symptoms - General Info Date of Service: 12/31/20 (POD/PPD # 3 S/P Primary LTC/S) - Patient Data Vital Signs - Most Recent: Last Vital Signs Temp 98.0 F 12/31/20 08:00 Pulse 76 12/31/20 08:00 Resp 16 12/31/20 08:00 BP 158/101 H 12/31/20 08:00 Pulse Ox 98 12/31/20 08:00 Weight - Most Recent: 175 lb Lab Results - Last 24 Hours: Laboratory Results - last 24 hr 12/28/20 12/28/20 12/31/20 Range/Units 09:05 09:05 06:09 WBC 7.0 (5.0-10.0) 10^3/uL RBC 3.31 L (4.2-5.4) 10^6/uL Hgb 8.6 L (12.0-16.0) g/dL Hct 26.8 L (37.0-47.0) % MCV 81.0 (80-100) fL MCH 26.0 L (27.0-34.0) pg MCHC 32.1 L (33.0-35.0) g/dL Plt Count 315 (150-450) 10^3/uL Hep Bs Antigen Negative (Negative) Hepatitis C Antibody >11.0 H (0.0-0.9) s/co ratio Micro Results - Last 24 Hours: Microbiology 12/28/20 08:13 Group B Streptococcus Culture - Final Vaginal/Rectal NEGATIVE STREP GROUP B 12/28/20 08:25 Urine Culture - Final Urine, Catheterized NO GROWTH AFTER 2 DAYS Med Orders - Current: Current Medications Acetaminophen (Acetaminophen 325 Mg Tab) 650 mg PO Q6H PRN PRN Reason: Mild Pain (1-3) or Fever Calcium Carbonate (Calcium Carbonate/Vitamin D3 1250 Mg-200 Unit Tab) 2 tab PO BID [facility] Last Admin: 12/31/20 08:15 Dose: 2 tab Documented by: Carboprost Tromethamine (Carboprost Tromethamine 250 Mcg/1 Ml Amp) 250 mcg IM ONETIME PRN PRN Reason: Bleeding Diphenhydramine HCl (Diphenhydramine 50 Mg/Ml Sdv) 25 mg IVPUSH Q6H PRN PRN Reason: Itching or Nausea Docusate Sodium (Docusate Sodium 100 Mg Cap) 100 mg PO Q12H PRN PRN Reason: Constipation Last Admin: 12/31/20 08:15 Dose: 100 mg Documented by: Ephedrine Sulfate (Ephedrine 50 Mg/Ml Sdv) 5 mg IVPUSH SEECOMMENT PRN PRN Reason: Other Ferrous Sulfate (Ferrous Sulfate 325 Mg Tab) 325 mg PO BID [facility] Last Admin: 12/31/20 08:15 Dose: 325 mg Documented by: Tranexamic Acid 1,000 mg/ (Sodium Chloride) 110 mls @ 660 mls/hr IV ONETIME PRN PRN Reason: Bleeding Oxytocin/Sodium Chloride (Pitocin In Ns 30 Unit/500 Ml) 30 unit in 500 mls @ 2 mls/hr IV TITRATE [facility]; Protocol Last Titration: 12/28/20 09:55 Dose: 0 munits/min, 0 mls/hr Documented by: Lactated Ringer's (Ringers, Lactated) 1,000 mls @ 125 mls/hr IV ASDIRECTED [facility] Last Admin: 12/28/20 16:25 Dose: 125 mls/hr Documented by: Tranexamic Acid 1,000 mg/ (Sodium Chloride) 110 mls @ 660 mls/hr IV ONETIME PRN PRN Reason: Bleeding Ibuprofen (Ibuprofen 800 Mg Tab) 800 mg PO Q8H PRN PRN Reason: Cramping Last Admin: 12/31/20 08:15 Dose: 800 mg Documented by: Methylergonovine Maleate (Methylergonovine 0.2 Mg/1 Ml Amp) 0.2 mg IM ONETIME PRN PRN Reason: Excessive Vaginal Bleeding Misoprostol (Misoprostol 400 Mcg (4 X 100 Mcg Tab)) 800 mcg RECTAL ASDIRECTED PRN PRN Reason: Excessive bleeding Naloxone HCl (Naloxone 2 Mg/2 Ml Syringe) 0.1 mg IVPUSH SEECOMMENT PRN PRN Reason: Respiratory Depression Ondansetron HCl (Ondansetron 4 Mg/2 Ml Sdv) 4 mg IVPUSH Q4H PRN PRN Reason: Nausea/Vomiting Oxycodone/Acetaminophen (Acetaminophen/Oxycodone 325-5 Mg Tab) 1 tab PO Q4H PRN PRN Reason: Pain (moderate 4-6) Oxycodone/Acetaminophen (Acetaminophen/Oxycodone 325-5 Mg Tab) 2 tab PO Q4H PRN PRN Reason: Pain (moderate 4-6) Last Admin: 12/31/20 08:16 Dose: 2 tab Documented by: Prenat Multivit/Dental Intern/Iron/Folic Ac ( Multivitamin With Calcium/Folic Acid/Iron Tab) 1 each PO DAILY [facility] Last Admin: 12/31/20 08:15 Dose: 1 each Documented by: Simethicone (Simethicone 80 Mg Tab.Chew) 160 mg PO QID [facility] Last Admin: 12/31/20 08:15 Dose: 160 mg Documented by: Sodium Chloride (Sodium Chloride 0.9% 10 Ml Syringe) 10 ml FLUSH ASDIRECTED PRN PRN Reason: Keep Vein Open Discontinued Medications Azithromycin (Azithromycin 250 Mg Tab) 1,000 mg PO ONETIME ONE Stop: 12/29/20 12:26 Last Admin: 12/29/20 13:25 Dose: 1,000 mg Documented by: Ceftriaxone Sodium (Ceftriaxone 500 Mg Vial) 500 mg IM ONETIME ONE Stop: 12/29/20 12:24 Last Admin: 12/29/20 13:26 Dose: 500 mg Documented by: Citric Acid/Sodium Citrate (Citric Acid/Sodium Citrate Solution 30 Ml Cup) 30 ml PO ONETIME ONE Stop: 12/28/20 04:37 Last Admin: 12/28/20 04:50 Dose: 30 ml Documented by: Citric Acid/Sodium Citrate (Citric Acid/Sodium Citrate Solution 30 Ml Cup) Confirm Administered Dose 30 ml .ROUTE .STK-MED ONE Stop: 12/28/20 04:46 Last Admin: 12/28/20 07:36 Dose: Not Given Documented by: Lactated Ringer's (Ringers, Lactated) 1,000 mls @ 125 mls/hr IV ASDIRECTED [facility] Last Admin: 12/28/20 07:40 Dose: 125 mls/hr Documented by: Lactated Ringer's (Ringers, Lactated) 1,000 mls @ 500 mls/hr IV .BOLUS [facility] Last Admin: 12/28/20 04:04 Dose: 500 mls/hr Documented by: Cefazolin Sodium/Dextrose 2 gm (/ Premix) 50 mls @ 100 mls/hr IV ONETIME ONE Stop: 12/28/20 05:05 Last Admin: 12/28/20 05:55 Dose: 100 mls/hr Documented by: Cefazolin Sodium/Dextrose (Ancef 2 Gm/50 Ml) Confirm Administered Dose 50 mls @ as directed .ROUTE .STK-MED ONE Stop: 12/28/20 04:57 Oxytocin/Sodium Chloride (Pitocin In Ns 30 Unit/500 Ml) Confirm Administered Dose 60 unit in 1,000 mls @ as directed .ROUTE .STK-MED ONE Stop: 12/28/20 04:58 Magnesium Sulfate (Magnesium Sulfate In Water 4 Gm/100 Ml) Confirm Administered Dose 4 gm in 100 mls @ as directed .ROUTE .STK-MED ONE Stop: 12/31/20 09:08 Magnesium Sulfate (Magnesium Sulfate In Water 20 Gm/500 Ml) Confirm Administered Dose 20 gm in 500 mls @ as directed .ROUTE .STK-MED ONE Stop: 12/31/20 09:08 Ketorolac Tromethamine (Ketorolac 30 Mg/Ml Sdv) 15 mg IVPUSH Q6H [facility] Stop: 12/29/20 01:01 Last Admin: 12/29/20 00:50 Dose: 15 mg Documented by: Norepinephrine Bitartrate (Norepinephrine 4 Mg/4 Ml Sdv) Confirm Administered Dose 4 mg .ROUTE .STK-MED ONE Stop: 12/28/20 06:11 Last Admin: 12/28/20 08:54 Dose: Not Given Documented by: - Infant Interaction Infant Disposition, : to Nursery Interaction: Not Interacting Feeding: Bottle Fed Infant Support Person: Other (see below) - Recovery Exam Fundal Tone: Firm Fundal Level: 1 Fingerbreadths Below Umbilicus Fundal Placement: Midline Lochia Amount: Small Lochia Color: Rubra/Red Perineum Description: Intact, Minimal Bruising/Swelling Episiotomy/Laceration: None Bladder Status: Nonpalpable, Voiding Urinary Elimination: Voided - Exam General: Alert, Oriented, Cooperative, No Acute Distress HEENT: Pupils Equal, Pupils Reactive, EOMI, Mucous Membr. Moist/[place] Neck: Supple Lungs: Clear to Auscultation, Normal Respiratory Effort Cardiovascular: Regular Rate, Regular Rhythm, No Murmurs GI/Abdominal Exam: Normal Bowel Sounds, Soft, Non-Tender, No Organomegaly, No Distention Extremities: Normal Inspection, Normal Range of Motion, Non-Tender, No Pedal Edema Skin: Warm, Dry, Intact Wound/Incisions: Healing Well, No Drainage Neurological: No New Focal Deficit, Normal Gait, Normal Speech, Normal Tone, Strength Equal Bilateral, Reflexes Equal Bilateral Psy/Mental Status: Alert, Normal Affect, Normal Mood - Problem List Review Problem List Initiated/Reviewed/Updated: Yes - My Orders Last 24 Hours: My Active Orders 12/31/20 10:12 Ready for Discharge [RC] PER UNIT ROUTINE - Assessment Assessment:: POD # 3 S/P Primary low transverse section No care- Grand multiparity History of Preeclampsia without severe features Acute anemia secondary to blood loss stable Chlamydia and Gonorrhea treated. depression score 12. - Plan Plan:: Discharge to home today. All questions answered. Patient has no thoughts of hurting herself, the baby or any one else. Iburpofen/Percocet for pain control PNV and Iron take daily as prescribed. Follow up next week with Dr. Mcduffie for staple removal.
[2020-12-31 12:37] VITALS: BP 128/74; PULSE 68
[2020-12-31] MEDS ORDERED: Oxytocin/Normal Saline 30 UNIT/500 ML BAG IV ONE (13:39)
--- NOTE | 2021-01-01 06:58 | DISCH ---
INDICATION FOR ADMISSION: Ms. Vuong is a 35-year-old 11, para 8-1-1-9 female who reported to [facility] with increasing force and frequency of contractions and heavy vaginal bleeding. She did not have any care on admission. She was noted to have hypertension, positive methamphetamine use with an EDC of approximately 01/12/2021, making her EGA 37-6/7 weeks gestation. She was also hepatitis C positive with anemia of . After admission, the heart tones were in the 80s to 90s with good variability. She had moderate bleeding noted. A rapid bedside ultrasound showed her to be approximately 36-3/7 weeks gestation, and a primary low-transverse section was called. She tolerated the procedure quite well. She had an estimated blood loss during the procedure 300 mL with pre-delivery blood loss before the surgery anywhere between 500 to 1000. She was hypotensive. She did have spinal anesthesia and delivered a viable male , weighing 5 pounds 8 ounces, 18 inches long with scores of 5 at one minute, 7 at five minutes. She tolerated the rest of her procedure quite well. She went from the operating room to recovery and then to the OB floor. She did receive 1 unit of packed red blood cells because of the amount of blood loss that she had and her hypotension. She tolerated the rest of her hospital stay quite well. She was afebrile. Vital signs are stable. She tolerated her diet well and ambulated quite well. Her incision did well with no erythema or drainage noted. Her hemoglobin dropped to 6.5 right after surgery, then it was day #1, 8.0 after 1 unit of packed red blood cells given the day before, and on postop day #3, it was 8.6. She was discharged to home on postop/ day #3. LABORATORY AND DIAGNOSTIC STUDIES: 12/28/2020, WBC 7.4, hemoglobin 10.0, hematocrit 31.2, platelet count 335,000. Repeated WBC 10.2, hemoglobin 7.0, hematocrit 22.2, platelet count 245,000. CMP: Sodium 138, potassium 3.7, BUN 8, creatinine 0.57, glucose 81, uric acid 3.8, AST 17, ALT 14, alkaline phosphatase 118, LDH 129, protein-creatinine ratio 916.7. Urine drug screen positive for methamphetamine. RPR nonreactive. Chlamydia positive. Gonorrhea positive. Hepatitis B surface antigen negative. HIV nonreactive. Rubella immune [id number] test was negative. 12/28/2020 hemoglobin 6.5, 12/29/2020 WBC 6.6, hemoglobin 8.0, hematocrit 25.1, platelet count 241. 12/31/2020, WBC 7.0, hemoglobin 8.6, hematocrit 26.8, platelet count 315,000. DISCHARGE INSTRUCTIONS: 1. Discharge to home. 2. Follow up with Dr. Elsi Cabrera next week for staple removal and blood pressure check. 3. No douching, tampons, intercourse x6 weeks. 4. Discharge instructions including activity, followup, medications, diet and wound care were discussed with the patient. She understands these and is willing to comply with these. 5. Ibuprofen 800 mg 1 tablet t.i.d. p.r.n. for pain. 6. Percocet 5/325 mg 1 tablet t.i.d. p.r.n. for pain. 7. vitamin 1 tablet daily. 8. Iron 325 mg twice a day. DISCHARGE DIAGNOSES: 1. 37-6/7 week intrauterine by last menstrual period 36-3/7 weeks gestation by ultrasound on admission. Preeclampsia without severe features. 2. Grand multiparity. 3. Vaginal bleeding with labor. 4. Methamphetamine abuse. 5. Hepatitis C positive. 6. Tobacco abuse. 7. No care. 8. Dehydration. 9. Anemia, chronic of . 10.Acute anemia secondary to blood loss. 11.Primary low-transverse section via Pfannenstiel skin incision. 12.Spinal anesthesia. [facility] /[id number]
== END 2020-12-31 13:40 | disposition home or self-care (01) | DRG 786 ==
LOC: DL.OBCHECK 03:52 → DL.OB 04:36 → OBSVTOIN 05:13
PROVIDERS: ADMIT Family Medicine; ATTEND Family Medicine
PROC: 10D00Z1 Extraction of Products of Conception, Low, Open Approach (ICD-10-PCS; principal; 2020-12-28)
PROC: 30233N1 Transfusion of Nonautologous Red Blood Cells into Peripheral Vein, Percutaneous Approach (ICD-10-PCS; 2020-12-28)
DX: O99.02 Anemia complicating childbirth (principal); O45.93 Premature separation of placenta, unspecified, third trimester; D62 Acute posthemorrhagic anemia; O26.833 Pregnancy related renal disease, third trimester; O98.813 Other maternal infectious and parasitic diseases complicating pregnancy, third trimester; O99.324 Drug use complicating childbirth; O14.04 Mild to moderate pre-eclampsia, complicating childbirth; F15.10 Other stimulant abuse, uncomplicated; Z37.0 Single live birth; O99.334 Smoking (tobacco) complicating childbirth; F17.200 Nicotine dependence, unspecified, uncomplicated; O99.284 Endocrine, nutritional and metabolic diseases complicating childbirth; E86.0 Dehydration; I95.2 Hypotension due to drugs; T41.3X5A Adverse effect of local anesthetics, initial encounter; Z20.822 Contact with and (suspected) exposure to COVID-19; Z3A.37 37 weeks gestation of pregnancy; Z90.49 Acquired absence of other specified parts of digestive tract; Z88.6 Allergy status to analgesic agent
CPT/HCPCS: 01961; 36415; 36430; 51702; 76815; 80053; 80305-QW; 80307; 81001; 82570; 83615; 84156; 84550; 85018; 85025; 85027; 86592; 86762; 86803; 86850; 86900; 86901; 86920; 86922; 87081; 87086; 87340; 87389; 87491; 87591; 93005; A9270-GY; J0690; J0696; J1885; J2370; J2405; J2590; J2704; J7120; P9016; U0002

== ENCOUNTER 2022-06-12 17:18 | Emergency (ER) | payer MEDICAID ==
[2022-06-12] MEDS ORDERED: Sodium Chloride 0.9% 10 ML Syringe FLUSH PRN (17:50)
[2022-06-12 17:52] VITALS: BP 135/90; PULSE 68
[2022-06-12] MEDS ORDERED: Ketorolac 30 MG/ML SDV IVPUSH ONE (18:31)
[2022-06-12 18:35] LABS: ANION GAP 13.7 mEq/L (7-13)
== END 2022-06-12 18:54 | disposition home or self-care (01) ==
LOC: DL.ED 17:18
DX: S06.0X0A Concussion without loss of consciousness, initial encounter (principal); Z88.6 Allergy status to analgesic agent; W01.10XA Fall on same level from slipping, tripping and stumbling with subsequent striking against unspecified object, initial encounter
CPT/HCPCS: 36415; 70450; 80053; 85025; 85610; 99283; 99285

== ENCOUNTER 2023-01-10 18:38 | Emergency (ER) | payer MEDICAID ==
[2023-01-10 19:23] VITALS: BP 155/89; PULSE 95
[2023-01-10] MEDS ORDERED: Azithromycin 250 MG Tab PO ONE (19:57)
[2023-01-10] MEDS ORDERED: cefTRIAXone 1 GM, Lidocaine 1% 2.1 ML IM ONE ×2 (19:59)
[2023-01-14 13:47] LABS: C.TRACHOMATIS BY TMA Negative (Negative); N.GONORRHOEAE BY TMA Negative (Negative)
== END 2023-01-10 20:25 | disposition home or self-care (01) ==
LOC: DL.ED 18:38
DX: N30.00 Acute cystitis without hematuria (principal); Z20.2 Contact with and (suspected) exposure to infections with a predominantly sexual mode of transmission; Z88.8 Allergy status to other drugs, medicaments and biological substances
CPT/HCPCS: 87086; 87088; 87186; 87491; 87591; 96372; 99283; 99284; A9270; J0696; 81001; J3490